=== PATIENT | male | born 1940 | race Caucasian/White ===

== ENCOUNTER 2021-04-05 08:43 | Observation (INO) ==
[2021-04-05] MEDS ORDERED: oxyCODONE/APAP 5/325MG TABLET PO ONE (11:42)
--- NOTE | 2021-04-05 11:51 | Emergency Department Note ---
Male Urogenital HPI General Chief complaint: Urogenital-Male Stated complaint: urinating blood since yesterday afternoon Time Seen by Provider: 04/05/21 09:20 Source: patient Mode of arrival: ambulatory Limitations: no limitations History of Present Illness HPI Narrative: Narrative: Presents to room T5 for evaluation of hematuria and urinary retention. The patient has been under the care of Dr. Goss in the past. Last documented visit was approximately 3 years ago. It is noted the patient had tissue growth in the bladder which was bleeding. The patient states he is done well until approximately 2 weeks ago. The patient had an episode of bleeding at that time but this resolved on its own. He is back now with worsening pain, difficulty urinating and passing chula blood with clots. He denies any fevers. He denies any back or flank pain. No trauma. Symptoms are constant. He denies any exacerbating or alleviating factors. Related Data Home Medications Medication Instructions Recorded Confirmed MSM 750 mg PO BID 12/06/16 12/17/20 chondroitin 800 mg PO BID 12/06/16 12/17/20 flaxseed oil 1,000 mg capsule 1,000 mg PO QDAY cap 12/06/16 12/17/20 glucosamine HCl 1,500 mg tablet 800 mg PO BID tab 11/16/17 12/17/20 losartan 50 mg tablet 50 mg PO QDAY 12/10/17 12/17/20 aspirin 81 mg tablet,delayed 81 mg PO QDAY 12/17/19 12/17/20 release Previous Rx's Medication Instructions Recorded nitroglycerin 0.4 mg sublingual 0.4 mg SUBLINGUAL Q5M PRN #25 tab 12/17/20 tablet simvastatin 40 mg tablet 40 mg PO QPM 90 Days #90 tab 02/14/21 Allergies Allergy/AdvReac Type Severity Reaction Status Date / Time No Known Drug Allergies Allergy Verified 04/05/21 08:46 Review of Systems ROS ROS Narrative: Narrative: All systems ED: reviewed and negative except as stated. [facility] Narrative Patient History Narrative: Narrative: Medical/Surgical/Family History All Active Problems (Updated 04/05/21 @ 11:51 by Remington Bustillos MD) Hematuria (Acute) Medicare annual wellness visit, initial (Acute) S/P coronary artery stent placement (Chronic) History of total right knee replacement (Chronic) Hematuria (Acute) UTI (urinary tract infection) (Acute) Hypertension (Chronic) Hyperlipidemia (Chronic) CAD (coronary artery disease) (Chronic) History of tobacco use (Chronic) History of cataract surgery (Chronic ~2013) H/O eye surgery (Chronic ~2014) History of prostate surgery (Chronic ~2012) Hx of appendectomy (Chronic ~2010) H/O nasal polypectomy (Chronic) Joint pain (Chronic) Heart trouble (Chronic ~1999) Basal cell carcinoma of skin (Chronic ~1994) Arthritis (Chronic ~1989) Hx of tonsillectomy (Chronic) H/O shoulder surgery (Chronic ~2004) Hx of knee surgery (Chronic ~1996) Hx of colonoscopy (Chronic 03/17/16) History of amputation of finger (Chronic ~1956) Urinary retention (Chronic) Skin tag (Chronic) Incomplete bladder emptying (Chronic 06/12/13) Hyperplasia of prostate (Chronic) Benign prostatic hypertrophy with lower urinary tract symptoms (LUTS) (Chronic 06/12/13) Medical History Arthritis (~1989) Basal cell carcinoma of skin (~1994) Benign prostatic hypertrophy with lower urinary tract symptoms (LUTS) (06/12/13) CAD (coronary artery disease) coronary artery stenting in 1999 Heart trouble (~1999) History of amputation of finger (~1956) At age 17 his right index finger was amputated while using a [employer]. History of tobacco use Hyperlipidemia Hyperplasia of prostate Hypertension Incomplete bladder emptying (06/12/13) Joint pain Medicare annual wellness visit, initial Skin tag Urinary retention Surgical History H/O eye surgery (~2014) H/O nasal polypectomy 1986 & 2009 H/O shoulder surgery (~2004) Right shoulder surgery- rotator cuff History of cataract surgery (~2013) History of prostate surgery (~2012) History of total right knee replacement 2019 Hx of appendectomy (~2010) Hx of colonoscopy (03/17/16) [place] Hx of knee surgery (~1996) 1996 & 1997 Hx of tonsillectomy at age 21 S/P coronary artery stent placement 1999 Family History Mother Cardiac disease Thyroid disease Brother Malignant Melanoma of Skin Father Malignant Melanoma of Skin Arthritis Dementia Sister Malignant Melanoma of Skin Family/Other Cancer Uncle Tuberculosis Uncle Social History Smoking Status: Former smoker Alcohol Intake Frequency: does not drink Substance Use: does not use Exam Narrative Narrative: Narrative: General Limitations: no limitations General appearance: Present alert and in no apparent distress Head Head: Present atraumatic, normocephalic and normal inspection Eye Eye: Present normal appearance and EOMI; Absent conjunctival injection ENT ENT: Present normal exam and mucous membranes moist Neck Neck: Present normal inspection and trachea midline Respiratory Respiratory: Present normal lung sounds bilaterally; Absent respiratory distress Cardiovascular Cardiovascular: Present regular rate, normal rhythm and normal heart sounds Adbominal Abdominal: Present soft; Absent distention, tenderness, guarding and rebound Extremities Extremities: Present normal inspection; Absent tenderness Back Back: Present normal inspection; Absent tenderness Neurological Neurological: Present alert, oriented X3 and CN II-XII intact; Absent motor sensory deficit Psychiatric Psychiatric: Present normal affect and normal mood Skin Skin: Present warm (WNL) and dry; Absent rash Course Vital Signs Vital signs: Vital Signs Temperature 97.9 F 04/05/21 08:44 Pulse Rate 84 04/05/21 08:44 Respiratory Rate 20 04/05/21 08:44 Blood Pressure 130/78 04/05/21 08:44 Pulse Oximetry (%) 98 04/05/21 08:44 Temperature 97.9 F 04/05/21 08:44 Pulse Rate 75 04/05/21 11:44 Respiratory Rate 20 04/05/21 08:44 Blood Pressure 141/70 04/05/21 11:44 Pulse Oximetry (%) 97 04/05/21 11:44 [facility] MDM Narrative Medical decision making narrative: Narrative: On arrival patient had a three-way Flores catheter placed and CBI was initiated. The patient did pass clots and the CBI initially did start to clear. As a CBI was about to conclude the patient was noted to start passing more blood and was having more pain. I did discuss the case with the on-call urologist Dr. Jordan. CBC, chemistry, PSA and CT scan of the abdomen pelvis were obtained. Dr. Jordan will see the patient in the emergency department The patient's labs were reviewed. CT scan does show stones in the bladder. Dr. Jordan has agreed to admit the patient. Lab Data Result diagrams: 04/05/21 12:14 04/05/21 12:14 Labs: Lab Results 04/05/21 04/05/21 Range/Units 12:14 12:14 WBC 11.6 H (4.5-11.0) K/mcL RBC 4.83 (4.50-5.90) M/mcL Hgb 14.1 (13.5-16.5) g/dL Hct 43.5 (41.0-55.0) % MCV 90.1 (80.0-100.0) fL MCH 29.2 (26.0-34.0) pg MCHC 32.4 (31.0-36.0) g/dL RDW 14.4 (11.5-14.5) % Plt Count 175 (140-440) K/mcL MPV 11.3 H (7.4-10.4) fL Neut % (Auto) 80.5 H (38.0-78.0) % Lymph % (Auto) 12.5 L (15.0-49.0) % Dawes % (Auto) 6.0 (1.0-12.0) % Eos % (Auto) 0.7 (0.0-7.0) % Baso % (Auto) 0.3 (0.0-2.0) % Lymph # (Auto) 1.44 L (1.50-4.80) K/mcL Dawes # (Auto) 0.69 (0.10-0.90) K/mcL Eos # (Auto) 0.08 (0.00-0.70) K/mcL Baso # (Auto) 0.03 (0.00-0.20) K/mcL Absolute Neutrophils 9.32 H (1.80-8.00) K/mcL Sodium 136 (133-145) mmol/L Potassium 4.7 (3.3-5.1) mmol/L Chloride 103 (96-108) mmol/L Carbon Dioxide 25 (22-30) mmol/L Anion Gap 8.0 (8.0-16.0) BUN 25 H (8-23) mg/dL Creatinine 0.8 (0.7-1.2) mg/dL GFR Calculation 85 Glucose 105 (70-105) mg/dL Calcium 9.1 (8.6-10.4) mg/dL Total Bilirubin 0.2 (0.1-1.0) mg/dL AST 17 (<40) U/L ALT 8 (<40) U/L Alkaline Phosphatase 90 (39-117) U/L Total Protein 6.2 (5.9-8.4) gm/dL Albumin 3.6 (3.2-5.2) gm/dL Globulin 2.6 (2.2-3.7) gm/dL Albumin/Globulin Ratio 1.4 (1.0-2.3) Prostate Specific Ag 3.67 (<6.50) ng/mL Discharge Plan Patient/Caregiver Discharge Instructions 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 Condition: Fair Follow up with: José Lioa PA-C [Primary Care Provider] - Prescriptions: No Action simvastatin 40 mg tablet 40 mg PO QPM 90 Days Qty: 90 RF: 1 chondroitin 800 mg 800 mg PO BID RF: 0 MSM 750 mg 750 mg PO BID RF: 0 flaxseed oil 1,000 mg capsule 1,000 mg PO QDAY RF: 0 glucosamine HCl 1,500 mg tablet 800 mg PO BID RF: 0 losartan 50 mg tablet 50 mg PO QDAY RF: 0 aspirin 81 mg tablet,delayed release (DR/EC) 81 mg PO QDAY RF: 0 nitroglycerin [Nitrostat] 0.4 mg tablet, sublingual 0.4 mg SUBLINGUAL Q5M PRN (Reason: chest pain) Qty: 25 RF: 3
--- NOTE | 2021-04-05 12:18 | Cat Scan Report ---
History: Kidney stones and hematuria TECHNIQUE: The patient was imaged without contrast from the diaphragm to the symphysis pubis. Sagittal and coronal reformats are created. The radiation exposure was limited using dose reduction technology. FINDINGS: There is mild pulmonary fibrosis in both lung bases and there are couple small calcified granulomata posteriorly in both lower lobes. The liver is normal in size and homogeneous. Spleen is normal in size and contain several small calcified granulomata. The gallbladder bile ducts are normal. No abnormality seen within the pancreas or adrenals.. The kidneys are normal in size shape and contour. A 1 mm nonobstructing calyceal stone is present in the upper third of the right kidney. There is no left-sided kidney stone. There is mild fullness of the right renal pelvis compared to the left but is not abnormally dilated. There are no stones within the ureters. There is a Flores catheter within the urinary bladder. Contiguous with the catheter there couple small calculi. The largest is located above adjacent to the top of the prostate and measures 7 mm. The prostate is moderately enlarged and lifts the bladder from the floor of the pelvis. There are several calcifications within the transitional zone. The bladder wall is normal in thickness. The urine within the bladder has relatively high attenuation. Has the patient recently received intravenous contrast for another study? Blood mixing with urine is also a consideration. There is moderate atherosclerotic disease in aorta and iliac arteries with mild ectasia of the distal aorta and the right common iliac. There is moderate levoscoliotic curvature with degenerative disc disease and arthritis throughout the lumbar spine. Severe spinal canal stenosis is present at L4-5 and there is moderate central canal stenosis at L3-4. Arthritis is present in both hips. No ascites or adenopathy are present in the abdomen or pelvis. The bowel gas pattern is normal. The appendix is been removed. IMPRESSION: Small bladder calculi. The largest is 7 mm. 1 mm nonobstructing calyceal stone in the right kidney Dr. Bustillos was called with the report Interpreted and Authenticated by: Carlos Becerril 04/05/21
[2021-04-05 12:44] LABS: Basophils # (Auto) 0.03 K/mcL (0.00-0.20); Basophils % (Auto) 0.3 % (0.0-2.0); Eosinophils # (Auto) 0.08 K/mcL (0.00-0.70); Eosinophils % (Auto) 0.7 % (0.0-7.0); Hematocrit 43.5 % (41.0-55.0); Hemoglobin 14.1 g/dL (13.5-16.5); Lymphocytes # (Auto) 1.44 K/mcL (1.50-4.80); Lymphocytes % (Auto) 12.5 % (15.0-49.0); Mean Cell Volume 90.1 fL (80.0-100.0); Mean Corpuscular HGB Conc 32.4 g/dL (31.0-36.0); Mean Platelet Volume 11.3 fL (7.4-10.4); Monocytes # (Auto) 0.69 K/mcL (0.10-0.90); Neutrophils % (Auto) 80.5 % (38.0-78.0); Platelet Count 175 K/mcL (140-440); RBC 4.83 M/mcL (4.50-5.90); Red Cell Distribution Width 14.4 % (11.5-14.5); WBC 11.6 K/mcL (4.5-11.0)
[2021-04-05 13:03] LABS: ALT/SGPT 8 U/L (<40); AST/SGOT 17 U/L (<40); Albumin 3.6 gm/dL (3.2-5.2); Albumin/Globulin Ratio 1.4 (1.0-2.3); Alkaline Phosphatase 90 U/L (39-117); Bilirubin,Total 0.2 mg/dL (0.1-1.0); Blood Urea Nitrogen 25 mg/dL (8-23); Calcium 9.1 mg/dL (8.6-10.4); Carbon Dioxide 25 mmol/L (22-30); Chloride 103 mmol/L (96-108); Globulin 2.6 gm/dL (2.2-3.7); Glomerular Filtration Rate 85; Glucose 105 mg/dL (70-105)
--- NOTE | 2021-04-05 13:15 | General Surg History&Physical ---
HPI History of Present Illness Patient information: Note initiated : 04/05/21 at 1:10 pm Service Date, if different from initiated Date: [] Patient: Shaun Izquierdo a 80 y/o M admitted on for urinating blood since yesterday afternoon. Chief Complaint: [] Chief complaint: Gross hematuria with history of BPH and clot retention History of present illness: Mr. Izquierdo is a 80 year old M with BPH and history of greenlight laser TURP 8 to 10 years ago Patient has had some intermittent gross hematuria now presents with urinary re tention multiple clots and inability to void Patient had clot irrigation in the emergency room and CT imaging demonstrated bladder stone as well as right kidney stone in addition to marked BPH Patient now on CBI management. Patient's had only anticoagulation medication of 81 mg aspirin per day Patient now admitted for clot retention and continuous bladder irrigation management with potential progression to surgery for bladder stone removal pending overall medical status and urine culture results [facility] PFS All Active Problems (Updated 04/05/21 @ 11:51 by Remington Bustillos MD) Hematuria (Acute) Medicare annual wellness visit, initial (Acute) S/P coronary artery stent placement (Chronic) History of total right knee replacement (Chronic) Hematuria (Acute) UTI (urinary tract infection) (Acute) Hypertension (Chronic) Hyperlipidemia (Chronic) CAD (coronary artery disease) (Chronic) History of tobacco use (Chronic) History of cataract surgery (Chronic ~2013) H/O eye surgery (Chronic ~2014) History of prostate surgery (Chronic ~2012) Hx of appendectomy (Chronic ~2010) H/O nasal polypectomy (Chronic) Joint pain (Chronic) Heart trouble (Chronic ~1999) Basal cell carcinoma of skin (Chronic ~1994) Arthritis (Chronic ~1989) Hx of tonsillectomy (Chronic) H/O shoulder surgery (Chronic ~2004) Hx of knee surgery (Chronic ~1996) Hx of colonoscopy (Chronic 03/17/16) History of amputation of finger (Chronic ~1956) Urinary retention (Chronic) Skin tag (Chronic) Incomplete bladder emptying (Chronic 06/12/13) Hyperplasia of prostate (Chronic) Benign prostatic hypertrophy with lower urinary tract symptoms (LUTS) (Chronic 06/12/13) Medical History Arthritis (~1989) Basal cell carcinoma of skin (~1994) Benign prostatic hypertrophy with lower urinary tract symptoms (LUTS) (06/12/13) CAD (coronary artery disease) coronary artery stenting in 1999 Heart trouble (~1999) History of amputation of finger (~1956) At age 17 his right index finger was amputated while using a [employer]. History of tobacco use Hyperlipidemia Hyperplasia of prostate Hypertension Incomplete bladder emptying (06/12/13) Joint pain Medicare annual wellness visit, initial Skin tag Urinary retention Surgical History H/O eye surgery (~2014) H/O nasal polypectomy 1986 & 2009 H/O shoulder surgery (~2004) Right shoulder surgery- rotator cuff History of cataract surgery (~2013) History of prostate surgery (~2012) History of total right knee replacement 2018 Hx of appendectomy (~2010) Hx of colonoscopy (03/17/16) [place] Hx of knee surgery (~1996) 1996 & 1997 Hx of tonsillectomy at age 21 S/P coronary artery stent placement 1999 Family History Mother Cardiac disease Thyroid disease Brother Malignant Melanoma of Skin Father Malignant Melanoma of Skin Arthritis Dementia Sister Malignant Melanoma of Skin Family/Other Cancer Uncle Tuberculosis Uncle Social History household members: spouse housing: house lives independently: Yes marital status: education level: high school service: No occupational status: retired occupation: [employer], retired in 1999 eating out: rarely or never alcohol intake frequency: does not drink substance use type: does not use candida/nondenominational: None seatbelt use: always MEDS/ALLERGIES Home Medications and Allergies Home Medications Medication Instructions Recorded Confirmed Type MSM 750 mg PO BID 12/06/16 12/17/20 History chondroitin 800 mg PO BID 12/06/16 12/17/20 History flaxseed oil 1,000 mg capsule 1,000 mg PO QDAY cap 12/06/16 12/17/20 History glucosamine HCl 1,500 mg tablet 800 mg PO BID tab 11/16/17 12/17/20 History losartan 50 mg tablet 50 mg PO QDAY 12/10/17 12/17/20 History aspirin 81 mg tablet,delayed 81 mg PO QDAY 12/17/19 12/17/20 History release nitroglycerin 0.4 mg sublingual 0.4 mg SUBLINGUAL Q5M PRN #25 tab 12/17/20 12/17/20 Rx tablet simvastatin 40 mg tablet 40 mg PO QPM 90 Days #90 tab 02/14/21 Rx Allergies Allergy/AdvReac Type Severity Reaction Status Date / Time No Known Drug Allergies Allergy Verified 04/05/21 08:46 Physical Examination Vital Signs Vital signs: Temp Pulse Resp BP Pulse Ox 97.9 F 81 20 128/65 96 04/05/21 08:44 04/05/21 09:10 04/05/21 08:44 04/05/21 09:10 04/05/21 09:10 Additional Findings Additional exam: Patient is well-developed well-nourished white male in moderate distress secondary to clot retention with Flores catheter in place draining light red urine with continuous irrigation Vital signs stable HEENT within normal limits Chest normal diaphragmatic excursion Cardiac regular rhythm Abdomen nonobese and some suprapubic tenderness without rebound Musculoskeletal normal normal testes and phallus with catheter per urethra Results Labs Result diagrams: 04/05/21 12:14 04/05/21 12:14 Labs: Abnormal lab results 04/05/21 04/05/21 Range/Units 12:14 12:14 WBC 11.6 H (4.5-11.0) K/mcL MPV 11.3 H (7.4-10.4) fL Neut % (Auto) 80.5 H (38.0-78.0) % Lymph % (Auto) 12.5 L (15.0-49.0) % Lymph # (Auto) 1.44 L (1.50-4.80) K/mcL Absolute Neutrophils 9.32 H (1.80-8.00) K/mcL BUN 25 H (8-23) mg/dL Diabetes panel 04/05/21 Range/Units 12:14 Sodium 136 (133-145) mmol/L Potassium 4.7 (3.3-5.1) mmol/L Chloride 103 (96-108) mmol/L Carbon Dioxide 25 (22-30) mmol/L BUN 25 H (8-23) mg/dL Creatinine 0.8 (0.7-1.2) mg/dL Glucose 105 (70-105) mg/dL Calcium 9.1 (8.6-10.4) mg/dL AST 17 (<40) U/L ALT 8 (<40) U/L Alkaline Phosphatase 90 (39-117) U/L Total Protein 6.2 (5.9-8.4) gm/dL Albumin 3.6 (3.2-5.2) gm/dL Calcium panel 04/05/21 Range/Units 12:14 Calcium 9.1 (8.6-10.4) mg/dL Albumin 3.6 (3.2-5.2) gm/dL Pituitary panel 04/05/21 Range/Units 12:14 Sodium 136 (133-145) mmol/L Potassium 4.7 (3.3-5.1) mmol/L Chloride 103 (96-108) mmol/L Carbon Dioxide 25 (22-30) mmol/L BUN 25 H (8-23) mg/dL Creatinine 0.8 (0.7-1.2) mg/dL Glucose 105 (70-105) mg/dL Calcium 9.1 (8.6-10.4) mg/dL Adrenal panel 04/05/21 Range/Units 12:14 Sodium 136 (133-145) mmol/L Potassium 4.7 (3.3-5.1) mmol/L Chloride 103 (96-108) mmol/L Carbon Dioxide 25 (22-30) mmol/L BUN 25 H (8-23) mg/dL Creatinine 0.8 (0.7-1.2) mg/dL Glucose 105 (70-105) mg/dL Calcium 9.1 (8.6-10.4) mg/dL Total Bilirubin 0.2 (0.1-1.0) mg/dL AST 17 (<40) U/L ALT 8 (<40) U/L Alkaline Phosphatase 90 (39-117) U/L Total Protein 6.2 (5.9-8.4) gm/dL Albumin 3.6 (3.2-5.2) gm/dL All other labs normal. A/P Narrative A/P Narrative: Assessment: Clot retention likely secondary to infection BPH and/or bladder calculus with small nonobstructive right renal calculus as well noted Patient had bladder irritation of majority of clots and remains on CBI Potential for urinary tract infection along with stone noted and will initiate antibiotic therapy pending urine culture results as well as continued on CBI Patient will likely require cystolitholopaxy at some point but would need to have better medical control and assurance of no infection presently Plan: Admit for medical management initially with continuous bladder irrigation and initiation of 5 alpha reductase inhibition and antibiotic regimen empirically Time Spent With Patient Time: Total time spent is greater than 50% in coordination of care (as documented) at patient's floor/unit and/or counseling patient:
[2021-04-05 13:27] LABS: Prostate Specific Antigen 3.67 ng/mL (<6.50)
[2021-04-05] MEDS ORDERED: NITROGLYCERIN 0.4 MG TAB.SUBL SL PRN (17:54)
[2021-04-05] MEDS: 0.9 % SODIUM CHLORIDE 10 ML SYRINGE IV SCH ×2 (18:29→21:31)
[2021-04-05] MEDS ORDERED: OXYBUTYNIN CHLORIDE 5 MG TAB.XL.24H PO SCH (21:00)
[2021-04-05] MEDS ORDERED: SIMVASTATIN 40 MG TABLET PO SCH (21:00)
[2021-04-06] MEDS: 0.9 % SODIUM CHLORIDE 10 ML SYRINGE IV SCH (06:35)
--- NOTE | 2021-04-06 07:56 | General Surgery Progress Note ---
SUBJECTIVE Subjective Patient information: Note initiated : 04/06/21 at 7:53 am Service Date, if different from initiated Date: [] Patient: Shaun Izquierdo 80 y/o M admitted on 04/05/21 for urinating blood since yesterday afternoon. Chief Complaint: [] Interval history: Patient doing well this morning but urine clearing after 1 more clot evacuation last night Patient taking oral fluids well and regular diet Constitutional Vitals: Vital Signs Temp Pulse Resp BP Pulse Ox 97.4 F 65 16 138/80 95 04/06/21 07:50 04/06/21 07:50 04/06/21 07:50 04/06/21 07:50 04/06/21 07:50 Period Temp Pulse Resp BP Sys/Seo Pulse Ox Last 24 Hr 97.4 F-98.4 F 55-84 16-20 97-141/58-81 93-98 Intake and Output 04/05/21 04/06/21 04/06/21 21:59 05:59 13:59 Intake Total 3480 3150 Output Total 6575 3850 Balance -3095 -700 Weight 154 lb 3.2 oz Intake & Output: Intake & Output 04/05/21 04/06/21 04/06/21 21:59 05:59 13:59 Intake Total 3480 3150 Output Total 6575 3850 Balance -3095 -700 Weight 154 lb 3.2 oz Intake: Oral 480 150 CBI Fluid 3000 3000 Output: Urine Catheter Amount 1800 CBI Fluid 4775 3850 3-way Urethral 1200 Other: Meal Dinner Percent of Meal Consumed 100% Feeding Ability Independent Urine Appearance Clear Clear Small Blood Clots Small Blood Clots 3-way Urethral Clear Clear Small Blood Clots Small Blood Clots Urine Color Uehling Pale Uehling 3-way Urethral Uehling Uehling Urine Odor Normal Net CBI 575 850 Additional findings Additional findings: Afebrile vital signs stable Patient comfortable and able to ambulate slowly HEENT within normal limits Abdomen soft Catheter remains with clear urine on slow CBI A/P Narrative A/P Narrative: Assessment: Resolving gross hematuria/clot retention with bladder stone and BPH likely etiology Labs still pending from this morning Plan: Await lab results and presently turn off CBI to use as needed Continue activity as tolerated and potentially have catheter out later today pending results of labs and trial off irrigation Patient will need subsequent bladder stone removal but would have better control bleeding and assurance of negative cytology and culture prior to procedure which could be performed at a later date Time Spent With Patient Time: Total time spent is greater than 50% in coordination of care (as documented) at patient's floor/unit and/or counseling patient:
[2021-04-06 07:57] LABS: ALT/SGPT 8 U/L (<40); AST/SGOT 19 U/L (<40); Albumin 3.2 gm/dL (3.2-5.2); Albumin/Globulin Ratio 1.2 (1.0-2.3); Alkaline Phosphatase 87 U/L (39-117); Bilirubin,Total 0.4 mg/dL (0.1-1.0); Blood Urea Nitrogen 14 mg/dL (8-23); Calcium 8.7 mg/dL (8.6-10.4); Carbon Dioxide 28 mmol/L (22-30); Chloride 104 mmol/L (96-108); Globulin 2.7 gm/dL (2.2-3.7); Glomerular Filtration Rate 90; Glucose 93 mg/dL (70-105)
[2021-04-06] MEDS ORDERED: LEVOFLOXACIN 500 MG TABLET PO SCH (09:00)
[2021-04-06] MEDS ORDERED: VITAMIN D3 5,000 UNIT CAPSULE PO SCH (09:00)
[2021-04-06] MEDS ORDERED: FINASTERIDE 5 MG TABLET PO SCH (09:00)
--- NOTE | 2021-04-06 12:18 | Discharge Plan ---
Discharge Plan Patient/Caregiver Discharge Instructions Activity: increase activity as tolerated Diet: Regular Diet Prescriptions: New dutasteride [Avodart] 0.5 mg capsule 0.5 mg PO QDAY Qty: 90 RF: 0 sulfamethoxazole-trimethoprim [Bactrim DS] 800-160 mg tablet 1 tab PO BID Qty: 10 RF: 0 No Action simvastatin 40 mg tablet 40 mg PO QPM 90 Days Qty: 90 RF: 1 chondroitin 800 mg 800 mg PO BID RF: 0 MSM 750 mg 750 mg PO BID RF: 0 flaxseed oil 1,000 mg capsule 1,000 mg PO QDAY RF: 0 glucosamine HCl 1,500 mg tablet 800 mg PO BID RF: 0 losartan 50 mg tablet 100 mg PO QDAY RF: 0 aspirin 81 mg tablet,delayed release (DR/EC) 81 mg PO QDAY RF: 0 nitroglycerin [Nitrostat] 0.4 mg tablet, sublingual 0.4 mg SUBLINGUAL Q5M PRN (Reason: chest pain) Qty: 25 RF: 3 Vitamin D3 5,000 unit PO QDAY RF: 0 Follow Up Plan Follow up with: José Liao PA-C [Primary Care Provider] - Alex Jordan MD [Physician] - Patient Disposition: Home, Self-Care Hospital Course: irrigation and antiobiotics and Proscar Prognosis: Fair Discharge Orders: Discharge Order (Routine); Ordered 04/06/21 Ordered By: Alex Jordan
[2021-04-06 17:00] LABS: Basophils # (Auto) 0.02 K/mcL (0.00-0.20); Basophils % (Auto) 0.2 % (0.0-2.0); Eosinophils # (Auto) 0.17 K/mcL (0.00-0.70); Eosinophils % (Auto) 1.9 % (0.0-7.0); Hematocrit 41.8 % (41.0-55.0); Hemoglobin 13.2 g/dL (13.5-16.5); Lymphocytes # (Auto) 1.81 K/mcL (1.50-4.80); Lymphocytes % (Auto) 19.8 % (15.0-49.0); Mean Cell Volume 90.7 fL (80.0-100.0); Mean Corpuscular HGB Conc 31.6 g/dL (31.0-36.0); Monocytes # (Auto) 0.91 K/mcL (0.10-0.90); Neutrophils % (Auto) 68.1 % (38.0-78.0); Platelet Count 159 K/mcL (140-440); RBC 4.61 M/mcL (4.50-5.90); Red Cell Distribution Width 14.8 % (11.5-14.5); WBC 9.1 K/mcL (4.5-11.0)
== END 2021-04-06 14:45 | disposition home or self-care (01) ==
LOC: ED 08:43 → MEDSUR 08:43
PROVIDERS: ADMIT Urology; ATTEND Urology

== ENCOUNTER 2023-10-13 19:33 | Observation (INO) ==
[2023-10-13] MEDS ORDERED: NITROGLYCERIN 0.4 MG TAB.SUBL SL PRN (21:42)
[2023-10-13] MEDS ORDERED: MAGNESIUM HYDROXIDE 30 ML ORAL.SUSP PO PRN (22:07)
[2023-10-13] MEDS ORDERED: ONDANSETRON 4 MG/2 ML VIAL IV PRN (22:07)
[2023-10-13] MEDS ORDERED: MAG HYDROX/AL HYDROX/SIMETH 30 ML ORAL.SUSP PO PRN (22:07)
[2023-10-13 22:24] LABS: Basophils # (Auto) 0.03 K/mcL (0.00-0.30); Basophils % (Auto) 0.3 % (0.0-2.0); Eosinophils # (Auto) 0.25 K/mcL (0.00-0.70); Eosinophils % (Auto) 2.1 % (0.0-7.0); Hematocrit 42.7 % (40.1-51.0); Lymphocytes # (Auto) 2.05 K/mcL (1.50-4.80); Lymphocytes % (Auto) 17.1 % (15.5-49.0); Mean Cell Volume 89.9 fL (80.0-100.0); Mean Corpuscular HGB Conc 32.8 g/dL (31.0-36.0); Mean Platelet Volume 11.6 fL (8.8-12.5); Monocytes # (Auto) 1.42 K/mcL (0.10-0.90); Monocytes % (Auto) 11.9 % (1.0-12.0); Neutrophils % (Auto) 68.4 % (38.0-78.0); Platelet Count 142 K/mcL (140-440); RBC 4.75 M/mcL (4.63-6.08); Red Cell Distribution Width 14.7 % (11.5-14.5)
[2023-10-13 22:39] LABS: Blood Urea Nitrogen 29 mg/dL (8-23); Calcium 9.4 mg/dL (8.6-10.4); Carbon Dioxide 27 mmol/L (22-30); Chloride 102 mmol/L (96-108); Glomerular Filtration Rate 84; Glucose 101 mg/dL (70-105)
[2023-10-13] MEDS: DEXTROSE 5%-1/2NS W/20MEQ KCL 1,000 ML IV SCH (23:23)
[2023-10-14] MEDS: 0.9 % SODIUM CHLORIDE 10 ML SYRINGE IV SCH ×3 (05:17→20:08)
[2023-10-14] MEDS ORDERED: ceFAZolin 2 GM in DEXTROSE 5% IN WATER 50 ML IV SCH (07:45)
[2023-10-14] MEDS: LOSARTAN 50 MG TABLET PO SCH (07:57)
[2023-10-14] MEDS: CEPHALEXIN 500 MG CAPSULE PO SCH ×4 (07:57→20:08)
[2023-10-14] MEDS: ATORVASTATIN 40 MG TABLET PO SCH (07:57)
[2023-10-14] MEDS ORDERED: GENTAMICIN SULFATE IV SCH (08:00)
[2023-10-14] MEDS ORDERED: SODIUM CHLORIDE 0.9% IV SCH (08:00)
[2023-10-14] MEDS ORDERED: IPRATROPIUM/ALBUTEROL 3 ML AMPUL.NEB NEB PRN ×2 (10:30→13:10)
[2023-10-14] MEDS ORDERED: SCOPOLAMINE 1 PATCH PATCH TOPICAL PRN (10:30)
[2023-10-14] MEDS ORDERED: ONDANSETRON 4 MG/2 ML VIAL ONE (11:58)
[2023-10-14] MEDS ORDERED: fentaNYL 100 MCG/2 ML VIAL IV ONE (11:58)
[2023-10-14] MEDS ORDERED: PROPOFOL 200 MG/20 ML VIAL IV ONE (11:58)
[2023-10-14] MEDS ORDERED: ePHEDrine 50 MG/5 ML SYRINGE (ANEST) IV ONE (12:41)
[2023-10-14] MEDS ORDERED: PHENYLephrine 1 MG/10 ML SYRINGE (ANEST) ONE (12:41)
[2023-10-14] MEDS ORDERED: fentaNYL 100 MCG/2 ML VIAL IV PRN (13:10)
[2023-10-14] MEDS ORDERED: NALOXONE HCL 0.4 MG/ML VIAL IV PRN (13:10)
[2023-10-14] MEDS ORDERED: MAG HYDROX/AL HYDROX/SIMETH 30 ML ORAL.SUSP PO PRN (13:42)
[2023-10-14] MEDS ORDERED: ONDANSETRON 4 MG/2 ML VIAL IV PRN (13:42)
[2023-10-14] MEDS ORDERED: BISACODYL 10 MG SUPP.RECT PR PRN (13:42)
[2023-10-14] MEDS ORDERED: HYDROcodone/APAP 5/325MG TABLET PO PRN (13:42)
[2023-10-14] MEDS ORDERED: MAGNESIUM HYDROXIDE 30 ML ORAL.SUSP PO PRN (13:42)
[2023-10-14] MEDS ORDERED: DEXTROSE 5%-1/2NS W/20MEQ KCL 1,000 ML IV SCH (13:45)
[2023-10-14] MEDS ORDERED: 0.9 % SODIUM CHLORIDE 10 ML SYRINGE IV SCH (14:00)
[2023-10-14] MEDS ORDERED: LIDOCAINE 2% URO-JET 10 ML JEL.PF.APP UR ONE (14:07)
[2023-10-14] MEDS: DEXTROSE 5%-1/2NS W/20MEQ KCL 1,000 ML IV SCH (18:24)
[2023-10-15] MEDS: 0.9 % SODIUM CHLORIDE 10 ML SYRINGE IV SCH (04:56)
[2023-10-15 07:27] LABS: Hematocrit 40.7 % (40.1-51.0); Hemoglobin 13.3 g/dL (13.7-17.5); Mean Cell Volume 90.2 fL (80.0-100.0); Mean Corpuscular HGB Conc 32.7 g/dL (31.0-36.0); Platelet Count 130 K/mcL (140-440); RBC 4.51 M/mcL (4.63-6.08); Red Cell Distribution Width 14.6 % (11.5-14.5); WBC 11.9 K/mcL (4.5-11.0)
[2023-10-15 08:05] LABS: Blood Urea Nitrogen 13 mg/dL (8-23); Calcium 8.3 mg/dL (8.6-10.4); Carbon Dioxide 24 mmol/L (22-30); Chloride 101 mmol/L (96-108); Glomerular Filtration Rate 94; Glucose 96 mg/dL (70-105)
[2023-10-15] MEDS: ATORVASTATIN 40 MG TABLET PO SCH (08:38)
[2023-10-15] MEDS: CEPHALEXIN 500 MG CAPSULE PO SCH (08:38)
[2023-10-15] MEDS: LOSARTAN 50 MG TABLET PO SCH (08:39)
== END 2023-10-15 10:50 | disposition home or self-care (01) ==
LOC: ED 19:33 → MEDSUR 19:33
PROVIDERS: ADMIT Urology; ATTEND Urology

== ENCOUNTER 2023-10-26 18:17 | Observation (INO) ==
[2023-10-26] MEDS ORDERED: 0.9 % SODIUM CHLORIDE 1,000 ML IV ONE (18:39)
[2023-10-26 19:21] LABS: Basophils # (Auto) 0.03 K/mcL (0.00-0.30); Basophils % (Auto) 0.2 % (0.0-2.0); Eosinophils # (Auto) 0.27 K/mcL (0.00-0.70); Eosinophils % (Auto) 2.2 % (0.0-7.0); Hematocrit 43.5 % (40.1-51.0); Lymphocytes % (Auto) 14.7 % (15.5-49.0); Mean Cell Volume 90.4 fL (80.0-100.0); Mean Corpuscular HGB Conc 32.2 g/dL (31.0-36.0); Monocytes # (Auto) 1.06 K/mcL (0.10-0.90); Monocytes % (Auto) 8.7 % (1.0-12.0); Neutrophils % (Auto) 73.9 % (38.0-78.0); Platelet Count 194 K/mcL (140-440); RBC 4.81 M/mcL (4.63-6.08); Red Cell Distribution Width 14.2 % (11.5-14.5); WBC 12.2 K/mcL (4.5-11.0)
[2023-10-26 19:47] LABS: Prothrombin Time 13.6 sec (11.9-14.5)
[2023-10-26 19:48] LABS: Blood Urea Nitrogen 24 mg/dL (8-23); Calcium 9.7 mg/dL (8.6-10.4); Carbon Dioxide 23 mmol/L (22-30); Chloride 102 mmol/L (96-108); Glomerular Filtration Rate 83; Glucose 97 mg/dL (70-105)
[2023-10-26] MEDS ORDERED: oxyCODONE/APAP 5/325MG TABLET PO PRN (20:19)
[2023-10-26] MEDS ORDERED: MAGNESIUM HYDROXIDE 30 ML ORAL.SUSP PO PRN (20:19)
[2023-10-26] MEDS: DEXTROSE 5%-NS 1,000 ML IV SCH (21:52)
[2023-10-26] MEDS: 0.9 % SODIUM CHLORIDE 10 ML SYRINGE IV SCH (21:53)
[2023-10-27] MEDS: 0.9 % SODIUM CHLORIDE 10 ML SYRINGE IV SCH (05:40)
[2023-10-27] MEDS: DEXTROSE 5%-NS 1,000 ML IV SCH ×2 (06:05→07:29)
== END 2023-10-27 11:20 | disposition home or self-care (01) ==
LOC: MEDSUR 18:17 → ED 18:17 → MEDSUR 21:06
PROVIDERS: ADMIT Urology; ATTEND Urology